=== PATIENT | female | born 1960 | race Caucasian/White ===

== ENCOUNTER 2017-05-09 12:09 | Emergency (ER) | payer MEDICARE ==
--- NOTE | 2017-05-09 12:22 | ER Document Report ---
ED Medical Screen (RME) - General Chief Complaint: Abdominal Pain Stated Complaint: LOWER ABDOMINAL PAIN Time Seen by Provider: 05/09/17 12:20 Notes: Patient states that for several months she has had epigastric abdominal pain that is getting worse. She states that last night it was very severe. She states she feels like there is a babies had protruding from her epigastric area sometimes. She states she has had some nausea but no vomiting. No problems with bowel movements or urine. She has had C-sections but no other abdominal surgeries. She states she currently feels hungry and has had a normal appetite. - Related Data Allergies/Adverse Reactions: Penicillins Allergy (Verified 05/09/17 12:14) Past Medical History - Social History Frequency of alcohol use: None Drug Abuse: Marijuana Renal/ Medical History: Denies: Hx Peritoneal Dialysis Psychiatric Medical History: Reports: Hx Depression Past Surgical History: Reports: Hx Section - x2 Physical Exam - Vital signs Vitals: Temp Pulse BP Pulse Ox 98.6 F 100 136/74 H 94 05/09/17 12:14 05/09/17 12:14 05/09/17 12:14 05/09/17 12:14 Course - Vital Signs Vital signs: Temp Pulse Resp BP Pulse Ox 98.6 F 100 136/74 H 94 05/09/17 12:14 05/09/17 12:14 05/09/17 12:14 05/09/17 12:14
[2017-05-09 13:05] LABS: ABSOLUTE BASOPHILS # (AUTO) 0.1 10^3/uL (0.0-0.2); ABSOLUTE EOSINOPHILS # (AUTO) 0.2 10^3/uL (0.0-0.6); ABSOLUTE LYMPHOCYTES (AUTO) 3.3 10^3/uL (0.5-4.7); ABSOLUTE MONOCYTES (AUTO) 0.8 10^3/uL (0.1-1.4); BASOPHILS % (AUTO) 1.3 % (0-2); EOSINOPHILS % (AUTO) 2.5 % (0-6); HEMATOCRIT 46.6 % (36.0-47.0); HEMOGLOBIN 16.2 g/dL (12.0-15.5); LYMPHOCYTES % (AUTO) 39.2 % (13-45); MEAN CORPUSCULAR HGB CONC 34.8 g/dL (32.0-36.0); MEAN CORPUSCULAR VOLUME 92 fl (80-97); MONOCYTES % (AUTO) 9.7 % (3-13); RED BLOOD COUNT 5.07 10^6/uL (3.72-5.28); RED CELL DISTRIBUTION WIDTH 13.5 % (11.5-14.0); SEGMENTED NEUTROPHILS % (AUTO) 47.3 % (42-78); WHITE BLOOD COUNT 8.5 10^3/uL (4.0-10.5)
[2017-05-09 13:10] LABS: APPEARANCE,URINE SLIGHTLY-CLOUDY; BILIRUBIN,URINE NEGATIVE (NEGATIVE); GLUCOSE, URINE NEGATIVE (NEGATIVE); KETONES,URINE NEGATIVE (NEGATIVE); LEUKOCYTE ESTERASE,URINE TRACE (NEGATIVE); NITRITE,URINE NEGATIVE (NEGATIVE); PROTEIN,URINE NEGATIVE (NEGATIVE); URINE SPECIFIC GRAVITY 1.014; UROBILINOGEN,URINE NEGATIVE mg/dL (<2.0)
[2017-05-09 13:34] LABS: ALANINE AMINOTRANSFERASE 68 U/L (9-52); ALBUMIN 4.8 g/dL (3.5-5.0); ALKALINE PHOSPHATASE 97 U/L (38-126); ANION GAP 15 (5-19); ASPARTATE AMINO TRANSFERASE 40 U/L (14-36); BILIRUBIN,DIRECT 0.4 mg/dL (0.0-0.4); BILIRUBIN,TOTAL 0.7 mg/dL (0.2-1.3); BLOOD UREA NITROGEN 9 mg/dL (7-20); CALCIUM 10.2 mg/dL (8.4-10.2); CARBON DIOXIDE 22 mmol/L (22-30); CHLORIDE 107 mmol/L (98-107); CREATININE RESULT 0.74 mg/dL (0.52-1.25); GLUCOSE 104 mg/dL (75-110); LIPASE 182.3 U/L (23-300); POTASSIUM 4.3 mmol/L (3.6-5.0); SODIUM 144.4 mmol/L (137-145); TOTAL PROTEIN 7.7 g/dL (6.3-8.2)
--- NOTE | 2017-05-09 14:10 | ER Document Report ---
HPI - HPI Patient complains to provider of: Upper abdominal pain Onset: Other - Several months Onset/Duration: Waxing and waning Quality of pain: Achy Pain Level: 5 Context: Patient presents complaining of upper abdominal pain off and on for the past several months. Patient states that she will bend over or lifts something and she notices a bulge to the upper abdomen. Patient is concerned that she may have a hernia. Patient does complain of occasional nausea. Patient denies any vomiting. Associated Symptoms: Nausea, Other - Upper abdominal pain. denies: Fever, Vomiting Exacerbated by: Movement Relieved by: Denies Similar symptoms previously: No Recently seen / treated by doctor: No - ROS ROS below otherwise negative: Yes Systems Reviewed and Negative: Yes All other systems reviewed and negative - CONSTITUTIONAL Constitutional: DENIES: Fever - NEURO Neurology: DENIES: Weakness - RESPIRATORY Respiratory: DENIES: Coughing - GASTROINTESTINAL Gastrointestinal: REPORTS: Abdominal Pain, Nausea. DENIES: Patient vomiting - URINARY Urinary: DENIES: Dysuria - MUSCULOSKELETAL Musculoskeletal: DENIES: Extremity pain, Back Pain - DERM Skin Color: Normal Skin Problems: None Past Medical History - General Information source: Patient - Social History Smoking Status: Current Every Day Smoker Frequency of alcohol use: None Drug Abuse: Marijuana Occupation: None Family History: Reviewed & Not Pertinent Renal/ Medical History: Denies: Hx Peritoneal Dialysis Psychiatric Medical History: Reports: Hx Depression Infectious Medical History: Reports: Hx Hepatitis Past Surgical History: Reports: Hx Section - x2 Vertical Provider Document - CONSTITUTIONAL Agree With Documented VS: Yes Exam Limitations: No Limitations General Appearance: WD/WN, No Apparent Distress - HEENT HEENT: Atraumatic, Normocephalic - NECK Neck: Normal Inspection, Supple. negative: Lymphadenopathy-Left, Lymphadenopathy-Right - RESPIRATORY Respiratory: Breath Sounds Normal, No Respiratory Distress O2 Sat by Pulse Oximetry: 94 - CARDIOVASCULAR Cardiovascular: Regular Rate, Regular Rhythm - GI/ABDOMEN Gastrointestinal: Abdomen Soft, Abdomen Tender - Mild tenderness to epigastric area with increased intra-abdominal pressure reproduced with sitting in the upright position. Patient with palpable defect in abdominal musculature. No obvious hernia at this time - BACK Back: Normal Inspection. negative: CVA Tenderness-Right, CVA Tenderness-Left - MUSCULOSKELETAL/EXTREMETIES Musculoskeletal/Extremeties: ERIC TAYLOR - NEURO Level of Consciousness: Awake, Alert, Appropriate Motor/Sensory: No Motor Deficit - DERM Integumentary: Warm, Dry, No Rash Course - Re-evaluation Re-evalutation: 05/09/17 14:07 Patient with symptoms concerning for ventral hernia. Discussed worsening symptoms that patient should return to me before. Patient advised to decrease heavy lifting and activities that increase abdominal pressure. Patient advised that she will need to follow-up with a surgeon on outpatient basis. - Vital Signs Vital signs: Temp Pulse Resp BP Pulse Ox 98.6 F 100 136/74 H 94 05/09/17 12:14 05/09/17 12:14 05/09/17 12:14 05/09/17 12:14 - Laboratory Result Diagrams: 05/09/17 12:41 05/09/17 12:41 Laboratory results interpreted by me: 05/09/17 05/09/17 05/09/17 12:41 12:41 12:41 Hgb 16.2 H AST 40 H ALT 68 H Urine Blood MODERATE H Ur Leukocyte Esterase TRACE H 05/09/17 14:08 Labs- Entire Visit 05/09/17 05/09/17 05/09/17 12:41 12:41 12:41 WBC 8.5 RBC 5.07 Hgb 16.2 H Hct 46.6 MCV 92 MCH 32.0 MCHC 34.8 RDW 13.5 Plt Count 249 Seg Neutrophils % 47.3 Lymphocytes % 39.2 Monocytes % 9.7 Eosinophils % 2.5 Basophils % 1.3 Absolute Neutrophils 4.0 Absolute Lymphocytes 3.3 Absolute Monocytes 0.8 Absolute Eosinophils 0.2 Absolute Basophils 0.1 Sodium 144.4 Potassium 4.3 Chloride 107 Carbon Dioxide 22 Anion Gap 15 BUN 9 Creatinine 0.74 Est GFR ( Amer) > 60 Est GFR (Non-Af Amer) > 60 Glucose 104 Calcium 10.2 Total Bilirubin 0.7 Direct Bilirubin 0.4 Indirect Bilirubin Not Reportable Neonat Total Bilirubin Not Reportable AST 40 H ALT 68 H Alkaline Phosphatase 97 Total Protein 7.7 Albumin 4.8 Lipase 182.3 Urine Color YELLOW Urine Appearance SLIGHTLY-CLOUDY Urine pH 5.0 Ur Specific [place] 1.014 Urine Protein NEGATIVE Urine Glucose (UA) NEGATIVE Urine Ketones NEGATIVE Urine Blood MODERATE H Urine Nitrite NEGATIVE Urine Bilirubin NEGATIVE Urine Urobilinogen NEGATIVE Ur Leukocyte Esterase TRACE H Urine WBC (Auto) 1 Urine RBC (Auto) 1 Urine Bacteria (Auto) TRACE Squamous Epi Cells Auto 3 Urine Mucus (Auto) RARE Urine Ascorbic Acid NEGATIVE Discharge - Discharge Clinical Impression: Liver function test abnormality Abdominal pain Qualifiers: Abdominal location: upper abdomen, unspecified Qualified Code(s): R10.10 - Upper abdominal pain, unspecified UTI (urinary tract infection) Qualifiers: Urinary tract infection type: site unspecified Hematuria presence: with hematuria Qualified Code(s): N39.0 - Urinary tract infection, site not specified Ventral hernia Qualifiers: Obstruction and gangrene presence: without obstruction or gangrene Qualified Code(s): K43.9 - Ventral hernia without obstruction or gangrene Condition: Stable Disposition: HOME, SELF-CARE Instructions: Abdominal Pain ([facility]), Hernia ([facility]), Liver Function Abnormality ( [facility]), Urinary Tract Infection ([facility]) Additional Instructions: Return immediately for any new or worsening symptoms Followup with your primary care provider, call tomorrow to make a followup appointment Follow-up with the general surgeon for further evaluation of abdominal hernia Prescriptions: Sulfamethoxazole/Trimethoprim [Bactrim Ds Tablet] 1 each PO BID #6 tablet Tramadol HCl [Ultram 50 mg Tablet] 50 mg PO ASDIR PRN #15 tablet PRN Reason: Referrals: [facility] [Provider Group] - Follow up in 3-5 days [facility] [Provider Group] - Follow up in 3-5 days
[2017-05-09 14:43] VITALS: BP 130/76
== END 2017-05-09 14:40 | disposition home or self-care (01) ==
LOC: ER 12:09
DX: K43.9 Ventral hernia without obstruction or gangrene (principal); N39.0 Urinary tract infection, site not specified; R31.9 Hematuria, unspecified; R10.10 Upper abdominal pain, unspecified; R11.0 Nausea; R79.89 Other specified abnormal findings of blood chemistry; F17.200 Nicotine dependence, unspecified, uncomplicated
CPT/HCPCS: 36415; 80053; 81001; 83690; 85025; 87086; 99284